=== PATIENT | female | born 1985 | race Caucasian/White ===

== ENCOUNTER 2017-07-01 10:08 | Day surgery (SDC) | payer OTHER ==
[~2017-07-01] VITALS: Ht 170.2 cm; Wt 76.6 kg
[~2017-07-01 10:08] MED LIST: CEPH500 PO; ESTNORT; HYDACE5 PO; ONE A DAY PREN1 EACH
== END 2017-07-01 13:37 | disposition home or self-care (01) ==
LOC: ORSCSDS 10:08
PROVIDERS: Obstetrics & Gynecology
PROC: 0UT74ZZ Resection of Bilateral Fallopian Tubes, Percutaneous Endoscopic Approach (ICD-10-PCS; principal; 2017-07-01 11:30)
PROC: 0U5B8ZZ Destruction of Endometrium, Via Natural or Artificial Opening Endoscopic (ICD-10-PCS; principal; 2017-07-01 11:30)
DX: Z30.2 Encounter for sterilization (principal); N93.8 Other specified abnormal uterine and vaginal bleeding; N71.9 Inflammatory disease of uterus, unspecified; D25.9 Leiomyoma of uterus, unspecified; Z87.891 Personal history of nicotine dependence
CPT/HCPCS: 88302; 88305; J0171; J0690; J1100; J1885; J2250; J2405; J2765; J3010; J7120

== ENCOUNTER → 2019-01-01 | Outpatient (CLI) | payer OTHER ==
[2019-01-01 09:21] LABS: BASOPHILS ABSOLUTE AUTO 0.02 K/mm3 (0.00-0.23); BASOPHILS PERCENT AUTO 0 % (0-2); EOSINOPHILS ABSOLUTE AUTO 0.28 K/mm3 (0.00-0.68); EOSINOPHILS PERCENT AUTO 6 % (0-6); Hematocrit 37.1 % (33.0-51.0); IMMATURE GRAN ABSOLUTE AUTO 0.01 K/mm3 (0.00-0.10); IMMATURE GRAN PERCENT AUTO 0 % (0-1); LYMPHOCYTES ABSOLUTE AUTO 1.09 K/mm3 (0.84-5.20); LYMPHOCYTES PERCENT AUTO 22 % (21-46); MONOCYTES ABSOLUTE AUTO 0.35 K/mm3 (0.16-1.47); MONOCYTES PERCENT AUTO 7 % (4-13); Mean Corpuscular HGB 32.7 pg (26.0-34.0); Mean Corpuscular Volume 93 fL (80-100); Mean Platelet Volume 9.6 fL (9.1-12.4); NEUTROPHILS ABSOLUTE AUTO 3.11 K/mm3 (1.96-9.15); NEUTROPHILS PERCENT AUTO 64 % (41-73); Platelet Count 178 K/mm3 (150-400); RDW Coefficient Variation 11.6 % (11.7-14.2); RDW Standard Deviation 39.6 fL (35.1-46.3); Red Blood Cell Count 3.98 M/mm3 (3.80-5.20); White Blood Cell Count 4.86 K/mm3 (4.00-11.30)
[2019-01-01 09:37] LABS: Alanine Aminotransfer (ALT/SGP 55 U/L (12-78); Alk Phos 57 U/L (50-136); Anion Gap 8 mmol/L (6-16); Aspartate Aminotrans (AST/SGOT 25 U/L (12-37); Bilirubin, Total 0.8 mg/dL (0.1-1.0); Blood Urea Nitrogen 8 mg/dL (8-24); Bun/Creatinine Ratio 13.3 (12.0-20.0); CO2, Blood 25 mmol/L (21-32); Calcium, Blood 8.8 mg/dL (8.5-10.1); Chloride, Blood 106 mmol/L (98-108); Globulin, Blood 4.1 g/dL (2.2-4.0); Glomerular Filtration Rate >60 (60-); Glucose, Blood 126 mg/dL (70-99); Potassium, Blood 3.6 mmol/L (3.5-5.5); Sodium, Blood 139 mmol/L (136-145); Total Protein, Blood 8.1 g/dL (6.4-8.2)
== END | disposition home or self-care (01) ==
LOC: LAB 08:34 → LAB SHORT 08:34
PROVIDERS: Emergency Medicine
DX: R53.83 Other fatigue (principal)
CPT/HCPCS: 80053; 84443; 85025